=== PATIENT | male | born 1990 | race Caucasian/White ===

== ENCOUNTER 2016-10-23 20:47 | Emergency (ER) | payer OTHER ==
[2016-10-23 22:14] VITALS: BP 132/67
[2016-10-23] MEDS ORDERED: Tobramycin 0.3% OPHTH.SOL* 5 ML BOT (regular eye drops) BOTH EYES ONE (22:42)
--- NOTE | 2016-10-25 14:55 | UC ---
Castro Nunez Erika, scribed for Lizette Roca MD on 10/23/16 at 2236 . Eye Complaint HPI - HPI Summary HPI Summary: Patient is a 26-year-old male presenting to the ED with a CC of right eye redness with drainage starting yesterday. He denies known foreign body, and states he does not wear contact lenses. He denies trauma to the eye. Associated symptoms include fatigue and runny nose. He denies sinus pressure, cough, chest pain, and SOB. 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 Pt smokes daily. Pt cannot recall the name of his PCP. - History of Current Complaint Chief Complaint: UCEye Stated Complaint: EYE COMPLAINT Time Seen by Provider: 10/23/16 22:28 Hx Obtained From: Patient Onset/Duration: Gradual Onset, Lasting Days, Still Present Timing: Constant Severity Initially: Moderate Severity Currently: Moderate Pain Intensity: 5 Pain Scale Used: 0-10 Numeric Location of Injury: Conjunctiva Character: Dull Aggravating Factor(s): Nothing Alleviating Factor(s): Nothing Associated Signs And Symptoms: Positive: Drainage (Purulent) - Risk Factors Penetrating Injury Risk Factor: Negative Acute Glaucoma Risk Factors: Negative - Allergies/Home Medications Allergies/Adverse Reactions: Allergies Allergy/AdvReac Type Severity Reaction Status Date / Time Cefaclor [From [facility] [place]] Allergy Rash Verified 02/11/16 17:34 PMH/Surg Hx/FS Hx/Imm Hx Respiratory History Of: Reports: Asthma - as a child no adult issues Other History Of: Hepatitis C - Surgical History Surgical History: Yes Surgery Procedure, Year, and Place: Right hand - Family History Known Family History: Positive: Diabetes, Respiratory Disease - Social History Occupation: Employed Full-time Alcohol Use: Rare Substance Use Type: Heroin Substance Use Comment - Amount & Last Used: past hx, not currently using past 1- 2 yrs Smoking Status (MU): Heavy Every Day Tobacco Smoker Type: Cigarettes Amount Used/How Often: 1 PPD - 1.5 PPD Household Exposure Type: Cigarettes Cessation Counseling: Patient Advised to Stop - Immunization History Most Recent Influenza Vaccination: 2014 Most Recent Tetanus Shot: up to date Review of Systems Constitutional: Fatigue Eyes: Drainage - right, Eye Redness - right ENT: Nasal Discharge All Other Systems Reviewed And Are Negative: Yes Physical Exam Triage Information Reviewed: Yes Appearance: No Pain Distress, Well-Nourished, Ill-Appearing - mildly Vital Signs: Initial Vital Signs Temp 98.6 F 10/23/16 22:07 Pulse 88 10/23/16 22:07 Resp 16 10/23/16 22:07 BP 132/67 10/23/16 22:07 Pulse Ox 95 10/23/16 22:07 Vital Signs Reviewed: Yes ENT Exam: Other - right eye swollen, conjunctiva inflammed, clear drainage, purulent drainage on eyelashes ENT: Positive: Pharyngeal erythema. Negative: Tonsillar swelling, Tonsillar exudate Neck: Positive: Supple Respiratory: Positive: No respiratory distress, Wheezing - Bilaterally with inspiration and expiration, but not with every breath Cardiovascular: Positive: RRR, Pulses Normal, Brisk Capillary Refill Musculoskeletal: Positive: Strength Intact, ROM Intact Neurological: Positive: Alert, Muscle Tone Normal Psychological Exam: Normal Skin Exam: Normal Eye Complaint Course/Dx - Differential Dx/Diagnosis Differential Diagnosis/HQI/PQRI: Conjunctivitis, Corneal Abrasion, Periorbital Cellulitis, Orbital Cellulitis Provider Diagnoses: 1. Conjunctivitis. 2. URI. 3. Tobacco abuse disorder Discharge - Discharge Plan Condition: Stable Disposition: HOME Patient Education Materials: How to Stop Smoking (ED), Upper Respiratory Infection (ED), Conjunctivitis (ED) Forms: *Work Release Referrals: No Primary Care Phys,NOPCP [Primary Care Provider] - Ti Cox MD [Medical Doctor] - The documentation as recorded by the Castro cox Erika accurately reflects the service I personally performed and the decisions made by , Lizette Roca MD.
== END 2016-10-23 22:55 | disposition home or self-care (01) ==
LOC: UCEAST 20:47
DX: H10.31 Unspecified acute conjunctivitis, right eye (principal); J06.9 Acute upper respiratory infection, unspecified; Z88.1 Allergy status to other antibiotic agents; F17.210 Nicotine dependence, cigarettes, uncomplicated
CPT/HCPCS: 99213; A9270-GY; G0463

== ENCOUNTER 2016-12-04 11:59 | Emergency (ER) | payer OTHER ==
[2016-12-04 12:25] VITALS: BP 125/69
--- NOTE | 2016-12-04 13:16 | UC ---
Respiratory Complaint HPI - History of Current Complaint Chief Complaint: UCGeneralIllness Stated Complaint: CONGEST,FEVER Time Seen by Provider: 12/04/16 13:03 Hx Obtained From: Patient Onset/Duration: Gradual Onset - started last week with flu symps, they got better and now coughing up green phlegm. has tried no meds but chest gabriel worse today Severity Initially: Mild - cough Severity Currently: Moderate Character: Sputum Description: - thick dk yellow/green Aggravating Factors: Exertion, Recumbent Position Alleviating Factors: Nothing Associated Signs And Symptoms: Positive: Nasal Congestion. Negative: Fever, Chills, Dizziness - Allergies/Home Medications Allergies/Adverse Reactions: Allergies Allergy/AdvReac Type Severity Reaction Status Date / Time Cefaclor [From [facility]] Allergy Rash Verified 12/04/16 12:25 Home Medications: Home Medications Ibuprofen TAB* [Advil TAB*] 400 mg PO Q6H PRN 12/04/16 [History Confirmed ] PMH/Surg Hx/FS Hx/Imm Hx Previously Healthy: Yes Endocrine History Of: Denies: Diabetes, Thyroid Disease Cardiovascular History Of: Denies: Cardiac Disorders, Hypertension Respiratory History Of: Reports: Asthma - as a child no adult issues Denies: COPD GI/ History Of: Denies: Ulcer Psychological History Of: Denies: Anxiety, Depression Other History Of: Hepatitis C - Surgical History Surgical History: Yes Surgery Procedure, Year, and Place: Right hand - Family History Known Family History: Positive: Diabetes, Respiratory Disease - Social History Occupation: Employed Full-time - restaurant Lives: With Family Alcohol Use: Rare Substance Use Type: None Substance Use Comment - Amount & Last Used: past hx heroin use, not currently using past 1-2 yrs Smoking Status (MU): Heavy Every Day Tobacco Smoker Type: Cigarettes Amount Used/How Often: 1 PPD - 1.5 PPD Household Exposure Type: Cigarettes Cessation Counseling: Patient Advised to Stop - Immunization History Most Recent Influenza Vaccination: 2014 Most Recent Tetanus Shot: up to date Review of Systems Constitutional: Fatigue - since 2 days ago Skin: Negative Respiratory: Cough Cardiovascular: Negative Neurovascular: Negative Neurological: Negative Psychological: Negative All Other Systems Reviewed And Are Negative: Yes Physical Exam Triage Information Reviewed: Yes Appearance: Well-Appearing, No Pain Distress, Well-Nourished Vital Signs: Initial Vital Signs Temp 98.8 F 12/04/16 12:22 Pulse 61 12/04/16 12:22 Resp 16 12/04/16 12:22 BP 125/69 12/04/16 12:22 Pulse Ox 99 12/04/16 12:22 Vital Signs Reviewed: Yes ENT: Positive: Pharynx normal, Nasal congestion, TMs normal Neck: Positive: No Lymphadenopathy Respiratory: Positive: Lungs clear, Other: - chest gabriel and productive cough ion room. Negative: Wheezing Cardiovascular Exam: Normal Cardiovascular: Positive: RRR Neurological Exam: Normal Psychological Exam: Normal Skin Exam: Normal UC Diagnostic Evaluation - Laboratory O2 Sat by Pulse Oximetry: 99 Respiratory Course/Dx - Differential Dx/Diagnosis Differential Diagnosis/HQI/PQRI: Bronchitis, Influenza, Lower Resp Infection, Sinusitis, Other - URI Provider Diagnoses: Bronchitis Discharge - Discharge Plan Condition: Stable Disposition: HOME Prescriptions: Azithromycin TAB* [Zithromax TAB (Z-GEORGE) 250 mg #6 tabs] 250 mg PO DAILY #6 tab
== END 2016-12-04 13:22 | disposition home or self-care (01) ==
LOC: UCEAST 11:59
DX: J40 Bronchitis, not specified as acute or chronic (principal); Z88.8 Allergy status to other drugs, medicaments and biological substances; F17.290 Nicotine dependence, other tobacco product, uncomplicated
CPT/HCPCS: 99212; G0463

== ENCOUNTER 2017-02-10 14:11 | Emergency (ER) | payer MEDICAID, OTHER ==
[2017-02-10 14:28] VITALS: BP 123/60
--- NOTE | 2017-02-10 15:19 | UC ---
Respiratory Complaint HPI - HPI Summary HPI Summary: cough chest congestion worsening for 4 days also would like his valtrex resolved - History of Current Complaint Chief Complaint: UCRespiratory Stated Complaint: CLIVE,COUGH Time Seen by Provider: 02/10/17 14:21 Hx Obtained From: Patient Onset/Duration: Gradual Onset, Lasting Days, Still Present, Worse Since - getting worse daily Timing: Constant Severity Initially: Mild Severity Currently: Moderate Pain Intensity: 4 Pain Scale Used: 0-10 Numeric Character: Cough: Productive Aggravating Factors: Nothing Alleviating Factors: Nothing Associated Signs And Symptoms: Positive: Pleuritic Chest Pain, URI, Nasal Congestion - Allergies/Home Medications Allergies/Adverse Reactions: Allergies Allergy/AdvReac Type Severity Reaction Status Date / Time [facility] Allergy Rash Verified 12/04/16 12:25 Home Medications: Home Medications Acetaminophen [Tylenol] 650 mg PO Q4H PRN 02/10/17 [History Confirmed 02/10/17] GuaiFENesin DM* [Robitussin DM*] 5 ml PO Q6H PRN 02/10/17 [History Confirmed 01/24] PMH/Surg Hx/FS Hx/Imm Hx Previously Healthy: No Endocrine History Of: Denies: Diabetes, Thyroid Disease Cardiovascular History Of: Denies: Cardiac Disorders, Hypertension Respiratory History Of: Reports: Asthma - as a child no adult issues Denies: COPD GI/ History Of: Denies: Ulcer Psychological History Of: Denies: Anxiety, Depression Other History Of: Hepatitis C - Surgical History Surgical History: Yes Surgery Procedure, Year, and Place: Right hand - Family History Known Family History: Positive: Diabetes, Respiratory Disease - Social History Occupation: Employed Full-time Lives: With Family Alcohol Use: Rare Substance Use Type: None Substance Use Comment - Amount & Last Used: past hx heroin use, not currently using past 1-2 yrs Smoking Status (MU): Heavy Every Day Tobacco Smoker Type: Cigarettes Amount Used/How Often: 1 PPD - 1.5 PPD Household Exposure Type: Cigarettes Cessation Counseling: Counseled 3+Min - 10 Min - Immunization History Most Recent Influenza Vaccination: fall 2015 Most Recent Tetanus Shot: up to date Review of Systems Constitutional: Negative Skin: Negative Eyes: Negative ENT: Negative Respiratory: Cough Cardiovascular: Negative Gastrointestinal: Negative Genitourinary: Negative Motor: Negative Neurovascular: Negative Musculoskeletal: Negative Neurological: Negative Psychological: Negative All Other Systems Reviewed And Are Negative: Yes Physical Exam Triage Information Reviewed: Yes Appearance: Well-Appearing, No Pain Distress, Well-Nourished Vital Signs: Initial Vital Signs Temp 98.5 F 02/10/17 14:22 Pulse 93 02/10/17 14:22 Resp 16 02/10/17 14:22 BP 123/60 02/10/17 14:22 Pulse Ox 96 02/10/17 14:22 Vital Signs Reviewed: Yes Eye Exam: Normal Eyes: Positive: Conjunctiva Clear ENT Exam: Normal ENT: Positive: Normal ENT inspection, Hearing grossly normal, Pharynx normal, TMs normal. Negative: Nasal congestion, Nasal drainage, Tonsillar swelling, Tonsillar exudate, Trismus, Muffled/hoarse voice Dental Exam: Normal Neck exam: Normal Neck: Positive: Supple, Nontender, No Lymphadenopathy Respiratory Exam: Normal Respiratory: Positive: Chest non-tender, Lungs clear, Normal breath sounds, No respiratory distress, No accessory muscle use Cardiovascular Exam: Normal Cardiovascular: Positive: RRR, No Murmur, Pulses Normal, Brisk Capillary Refill Musculoskeletal Exam: Normal Musculoskeletal: Positive: Strength Intact, ROM Intact, No Edema Neurological Exam: Normal Neurological: Positive: Alert, Muscle Tone Normal Psychological Exam: Normal Skin Exam: Normal UC Diagnostic Evaluation - Laboratory O2 Sat by Pulse Oximetry: 96 Respiratory Course/Dx - Course Course Of Treatment: nicotine cesation information, albuterol, zithromax, refill valtrex, follow with pcp - Differential Dx/Diagnosis Differential Diagnosis/HQI/PQRI: Asthma, Bronchitis, Laryngitis, Lower Resp Infection, Sinusitis Provider Diagnoses: Exacerbation of asthma, nicotine dependant, bronchitis, HSV (chronic) Discharge - Discharge Plan Condition: Stable Disposition: HOME Prescriptions: Albuterol HFA INHALER* [Ventolin HFA Inhaler*] 2 puff INH Q4H PRN #1 mdi PRN Reason: cough chest congestion Azithromycin TAB* [Zithromax TAB (Z-GEORGE) 250 mg #6 tabs] 2 tab PO SEE INSTRUCTIONS #1 george Spacer/Aerosol-Holding Chamber [Aerochamber Plus] 1 mis XX SEE INSTRUCTIONS #1 mis ValACYclovir (*) [Valtrex 500 mg (*)] 500 mg PO BID #60 tab Patient Education Materials: Nicotine (By breathing), Acute Bronchitis (ED), How to Use a Metered-Dose Inhaler and a Spacer (ED) Forms: *Work Release Referrals: [facility] [Outside] - 1 Week
== END 2017-02-10 15:00 | disposition home or self-care (01) ==
LOC: UCEAST 14:11
DX: J45.901 Unspecified asthma with (acute) exacerbation (principal); F17.210 Nicotine dependence, cigarettes, uncomplicated; B00.9 Herpesviral infection, unspecified; Z88.8 Allergy status to other drugs, medicaments and biological substances
CPT/HCPCS: 99212; G0463

== ENCOUNTER 2017-03-06 13:32 | Emergency (ER) | payer MEDICAID ==
[2017-03-06] MEDS ORDERED: Tetan/Diph/Pertus SYR(Tdap)* 0.5 ML SYR(BOOSTRIX) use SYR IM ONE (14:41)
--- NOTE | 2017-03-06 15:30 | UC ---
Laceration HPI - HPI Summary HPI Summary: 26 yo male presents after he cut his finger on a can, initially he reports there was a lot of blood which now has stopped. Does not remember when he has had his last tetanus - History Of Current Complaint Chief Complaint: UCLaceration Stated Complaint: HAND LAC Time Seen by Provider: 03/06/17 15:09 Hx Obtained From: Patient Laceration Location: Finger Mechanism Of Injury: Sharp Trauma Onset/Duration: Sudden Onset Severity: Moderate Pain Intensity: 1 Pain Scale Used: 0-10 Numeric Related History: Dominant Hand Right - Allergies/Home Medications Allergies/Adverse Reactions: Allergies Allergy/AdvReac Type Severity Reaction Status Date / Time Cefaclor [From [facility]] Allergy Rash Verified 03/06/17 14:12 PMH/Surg Hx/FS Hx/Imm Hx Previously Healthy: Yes Endocrine History Of: Denies: Diabetes, Thyroid Disease Cardiovascular History Of: Denies: Cardiac Disorders, Hypertension Respiratory History Of: Reports: Asthma - as a child no adult issues Denies: COPD GI/ History Of: Denies: Ulcer Psychological History Of: Denies: Anxiety, Depression Other History Of: Hepatitis C - Surgical History Surgical History: Yes Surgery Procedure, Year, and Place: Right hand - Family History Known Family History: Positive: Diabetes, Respiratory Disease - Social History Occupation: Employed Full-time Lives: With Family Alcohol Use: Rare Substance Use Type: None Substance Use Comment - Amount & Last Used: past hx heroin use Smoking Status (MU): Heavy Every Day Tobacco Smoker Type: Cigarettes Amount Used/How Often: 1 PPD - 1.5 PPD Have You Smoked in the Last Year: Yes Household Exposure Type: Cigarettes Cessation Counseling: Patient Advised to Stop - Immunization History Most Recent Influenza Vaccination: fall 2015 Most Recent Tetanus Shot: up to date Hx Tetanus, Diphtheria Vaccination: No Vaccination Up to Date: No Review of Systems Constitutional: Other Skin: Other - laceration to right 2nd finger Eyes: Negative ENT: Negative Respiratory: Negative Cardiovascular: Negative Gastrointestinal: Negative Genitourinary: Negative Motor: Negative Neurovascular: Negative Musculoskeletal: Negative Neurological: Negative Psychological: Negative All Other Systems Reviewed And Are Negative: Yes Physical Exam Triage Information Reviewed: Yes Appearance: Well-Appearing, No Pain Distress, Well-Nourished, Ill-Appearing Vital Signs: Initial Vital Signs Temp 98.2 F 03/06/17 14:09 Pulse 83 03/06/17 14:09 Resp 16 03/06/17 14:09 BP 133/75 03/06/17 14:09 Pulse Ox 98 03/06/17 14:09 Vital Signs Reviewed: Yes Respiratory: Positive: Chest non-tender, Lungs clear, Normal breath sounds, No respiratory distress, No accessory muscle use Cardiovascular: Positive: RRR, No Murmur, Pulses Normal, Brisk Capillary Refill Psychological: Positive: Normal Response To Family Skin: Positive: Other - right 2nd pointer finger - distal phalanx 0.5 cm long by 1 mm deep laceration, straight with clean edges. no bleeding noted. no erythema, drainage, mild tenderness Laceration Repair - Laceration Repair 1 Description: Linear Laceration Size After Repair: Length (cm) - 0.5, Width (mm) - 0.5 mm, Depth (mm ) - 1mm Cleansing Completed Via Routine Prep: Yes Irrigation With Pressure Irrigation Device: Yes Closure Material: Skin Adhesive, SteriStrips Laceration Course/Dx - Differential Dx - Laceration/Wound Differental Diagnoses: Abrasion, Laceration Provider Diagnoses: 1. right 2nd finger laceration Discharge - Discharge Plan Condition: Stable Disposition: HOME Patient Education Materials: Laceration (ED) Referrals: No Primary Care Phys,NOPCP [Primary Care Provider] - Additional Instructions: keep dressing on for at least 2-3 days. Do not get wet and do not bend finger. Monitor for signs and symptoms of infection. If you have any concerns return for re-evaluation.
[2017-03-06 15:40] VITALS: BP 128/86
== END 2017-03-06 16:20 | disposition home or self-care (01) ==
LOC: UCEAST 13:32
DX: S61.210A Laceration without foreign body of right index finger without damage to nail, initial encounter (principal); W26.8XXA Contact with other sharp object(s), not elsewhere classified, initial encounter; Y93.9 Activity, unspecified; Z23 Encounter for immunization; Y92.9 Unspecified place or not applicable; J45.909 Unspecified asthma, uncomplicated; Z88.1 Allergy status to other antibiotic agents; F17.210 Nicotine dependence, cigarettes, uncomplicated
CPT/HCPCS: 90715; 99211; G0463

== ENCOUNTER 2017-05-04 16:40 | Emergency (ER) | payer MEDICAID ==
[2017-05-04 16:46] VITALS: BP 136/64
--- NOTE | 2017-05-04 17:57 | UC ---
Throat Pain/Nasal Leighton HPI - HPI Summary HPI Summary: 26 y/o male presents to the urgent care c/o of sore throat and cough and body aches for the past 2 days. Pt states he has HX of recurrent bronchitis in the past and it starts with similar symptoms. Pt states he had mild fever yesterday and he took Nyquil which helped alleviate symptoms. He states his cough is nonproductive. Pt denies SOB, chest pain, N/V/D. Pt has not other complains. - History of Current Complaint Chief Complaint: UCRespiratory Stated Complaint: SORE THROAT,COUGH,CONGEST Time Seen by Provider: 05/04/17 17:40 Hx Obtained From: Patient Onset/Duration: Gradual Onset, Lasting Days, Still Present Severity: Moderate Pain Intensity: 2 Pain Scale Used: 0-10 Numeric Cough: Nonproductive Associated Signs & Symptoms: Positive: Dysphagia, Fever - mild yesterday - Epiglottits Risk Factors Epiglottis Risk Factors: Negative - Allergies/Home Medications Allergies/Adverse Reactions: Allergies Allergy/AdvReac Type Severity Reaction Status Date / Time Cefaclor [From [facility]] Allergy Rash Verified 05/04/17 16:46 Home Medications: Home Medications Dextromethorphan-Phenylephrine [Vicks Dayquil Cold & Flu 10-5-325 mg/15Ml] 1 liq PO PRN 05/04/17 [History] PMH/Surg Hx/FS Hx/Imm Hx Previously Healthy: Yes Respiratory History: Asthma Other History Of: Hepatitis C - Surgical History Surgical History: Yes Surgery Procedure, Year, and Place: Right hand - Family History Known Family History: Positive: Hypertension, Diabetes, Respiratory Disease - Social History Occupation: Employed Full-time Lives: With Family Alcohol Use: Rare Substance Use Type: None Substance Use Comment - Amount & Last Used: PAST HX COCAINE USE Smoking Status (MU): Current Every Day Smoker Type: Cigarettes Amount Used/How Often: 1 1/2 PPD Have You Smoked in the Last Year: Yes Household Exposure Type: Cigarettes - Immunization History Most Recent Influenza Vaccination: fall 2015 Most Recent Tetanus Shot: up to date Hx Tetanus, Diphtheria Vaccination: No Vaccination Up to Date: No Review of Systems Constitutional: Fever - at home Skin: Negative Eyes: Negative ENT: Sore Throat Respiratory: Cough - productive w/ green phlegm Cardiovascular: Negative Gastrointestinal: Negative Genitourinary: Negative Motor: Negative Neurovascular: Negative Musculoskeletal: Negative Neurological: Negative Psychological: Negative All Other Systems Reviewed And Are Negative: Yes Physical Exam Triage Information Reviewed: Yes Appearance: Well-Appearing, No Pain Distress, Well-Nourished, Obese Vital Signs: Initial Vital Signs Temp 98.5 F 05/04/17 16:43 Pulse 86 05/04/17 16:43 Resp 20 05/04/17 16:43 BP 136/64 05/04/17 16:43 Pulse Ox 97 05/04/17 16:43 Vital Signs Reviewed: Yes Eye Exam: Normal Eyes: Positive: Conjunctiva Clear - PERRLA, EOMI, fundi grossly normal ENT Exam: Normal ENT: Positive: Normal ENT inspection, Hearing grossly normal, Pharynx normal, Nasal congestion, Nasal drainage - clear discahrge, TMs normal Dental Exam: Normal Neck exam: Normal Neck: Positive: Supple, Nontender, No Lymphadenopathy Respiratory Exam: Normal Respiratory: Positive: Chest non-tender, Lungs clear, Normal breath sounds Cardiovascular Exam: Normal Cardiovascular: Positive: RRR, No Murmur, Pulses Normal Abdominal Exam: Normal Abdomen Description: Positive: Nontender, No Organomegaly, Soft. Negative: CVA Tenderness (R), CVA Tenderness (L) Bowel Sounds: Positive: Present Musculoskeletal Exam: Normal Musculoskeletal: Positive: Strength Intact, ROM Intact, No Edema Neurological Exam: Normal Psychological Exam: Normal Skin Exam: Normal Throat Pain/Nasal Course/Dx - Course Course Of Treatment: 26 y/o male presents to the urgent care c/o of sore throat and cough and body aches for the past 2 days. Hx obtained. PE WNL. Pt Rx Benzoate tab, albuterol inhaler to alleviate cough, and ibuprofen PO for his sore throat. Pt advised to increase fluid intake nad rest and if symptoms do not improve to return to the urgent care or PCP for further evaluation and treatment. Pt understood and agreed. - Differential Dx/Diagnosis Differential Diagnosis/HQI/PQRI: Laryngitis, Mononucleosis, Otitis Media, Pharyngitis, Tonsillitis, URI, Other Provider Diagnoses: 1- Upper respiratory infection Discharge - Discharge Plan Condition: Stable Disposition: HOME Prescriptions: Albuterol HFA INHALER* [Ventolin HFA Inhaler*] 1 - 2 puff INH Q6H PRN #1 mdi PRN Reason: Cough Benzonatate CAP* [Tessalon 100 MG CAP*] 100 mg PO TID PRN #15 cap PRN Reason: Cough Ibuprofen TAB* [Motrin TAB* 800 MG] 800 mg PO Q6H #20 tab Patient Education Materials: Upper Respiratory Infection (ED) Referrals: No Primary Care Phys,NOPCP [Primary Care Provider] - [facility]] - If Needed Additional Instructions: Please take medications as instructed. Please take ibuprofen after meals to alleviate pain and swelling. If symptoms do not improve or worsen please return to the urgent care or f/u with your PCP for further evaluation and treatment.
== END 2017-05-04 18:16 | disposition home or self-care (01) ==
LOC: UCEAST 16:40
DX: J06.9 Acute upper respiratory infection, unspecified (principal); J45.909 Unspecified asthma, uncomplicated; E66.9 Obesity, unspecified; Z88.1 Allergy status to other antibiotic agents; F17.210 Nicotine dependence, cigarettes, uncomplicated
CPT/HCPCS: 87651; 99212; G0463

== ENCOUNTER 2017-07-29 16:45 | Emergency (ER) | payer OTHER ==
[2017-07-29 18:38] LABS: Hematocrit 42 % (42-52); Hemoglobin 14.5 g/dl (14.0-18.0); Mean Corpuscular HGB Conc 35 g/dl (31-36); Mean Corpuscular Hemoglobin 30 pg (27-31); Mean Corpuscular Volume 88 fL (80-94); Mean Platelet Volume 7 um3 (7.4-10.4); Red Blood Count 4.78 10^6/ul (4.0-5.4); Red Cell Distribution Width 14 % (10.5-15); White Blood Count 10.7 10^3/ul (3.5-10.8)
[2017-07-29 18:52] LABS: ALT 29 U/L (7-52); AST 33 U/L (13-39); Albumin 4.1 g/dL (3.2-5.2); Alkaline Phosphatase 49 U/L (34-104); Anion Gap 5 mmol/L (2-11); BUN/Creatinine Ratio 15.2 (8-20); Blood Urea Nitrogen 12 mg/dL (6-24); CO2 Carbon Dioxide 27 mmol/L (22-32); Calcium 9.2 mg/dL (8.6-10.3); Chloride 104 mmol/L (101-111); EGFR African American 150.2 (>60); EGFR Non-African American 116.8 (>60); Globulin 3.1 g/dL (2-4); Glucose 105 mg/dL (70-100); Potassium 3.6 mmol/L (3.5-5.0); Sodium 136 mmol/L (133-145); Total Protein 7.2 g/dL (6.4-8.9)
[2017-07-29 19:18] LABS: Acetaminophen < 15 mcg/mL; Alcohol < 10 mg/dL (<10); Salicylate < 2.50 mg/dL (<30)
[2017-07-29] MEDS ORDERED: Naloxone Nasal Spray* 4 MG/0.1 ML NASAL.SPR NASAL ONE (19:21)
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
[2017-07-29 19:31] VITALS: BP 155/82
== END 2017-07-29 19:29 | disposition home or self-care (01) ==
LOC: ED 16:45
DX: T40.1X1A Poisoning by heroin, accidental (unintentional), initial encounter (principal); Y92.810 Car as the place of occurrence of the external cause; J45.909 Unspecified asthma, uncomplicated; F17.210 Nicotine dependence, cigarettes, uncomplicated
CPT/HCPCS: 36415; 80053; 80320; 80329; 85025; 93005; 99282; G0480

== ENCOUNTER 2017-09-18 19:52 | Emergency (ER) | payer OTHER ==
[2017-09-18] MEDS ORDERED: Naloxone* 0.4 MG/ML 1 ML VIAL IV PUSH ONE (20:16)
[2017-09-18 20:32] LABS: Hematocrit 50 % (42-52); Hemoglobin 17.1 g/dl (14.0-18.0); Mean Corpuscular HGB Conc 34 g/dl (31-36); Mean Corpuscular Hemoglobin 31 pg (27-31); Mean Corpuscular Volume 90 fL (80-94); Mean Platelet Volume 7 um3 (7.4-10.4); Red Blood Count 5.57 10^6/ul (4.0-5.4); Red Cell Distribution Width 14 % (10.5-15); White Blood Count 10.7 10^3/ul (3.5-10.8)
[2017-09-18] MEDS ORDERED: Albuterol/Ipratropium NEB.SOL* Albuterol 2.5 MG/Ipratropium 0.5 MG 3 ML INH ONE (20:44)
[2017-09-18] MEDS ORDERED: methylPREDNISolone 125 MG* 2 ML VIAL IV ONE (20:47)
[2017-09-18 20:48] LABS: ALT 22 U/L (7-52); AST 22 U/L (13-39); Albumin 4.8 g/dL (3.2-5.2); Alkaline Phosphatase 54 U/L (34-104); Anion Gap 9 mmol/L (2-11); BUN/Creatinine Ratio 15.5 (8-20); Blood Urea Nitrogen 17 mg/dL (6-24); CO2 Carbon Dioxide 25 mmol/L (22-32); Calcium 9.7 mg/dL (8.6-10.3); Chloride 102 mmol/L (101-111); EGFR African American 101.8 (>60); EGFR Non-African American 79.1 (>60); Globulin 3.6 g/dL (2-4); Glucose 131 mg/dL (70-100); Potassium 3.6 mmol/L (3.5-5.0); Sodium 136 mmol/L (133-145); Total Protein 8.4 g/dL (6.4-8.9)
[2017-09-18] MEDS ORDERED: Albuterol 2.5 MG/3 ML NEB.SOL* (0.083%) INH SCH (21:00)
[2017-09-18 21:09] LABS: Alcohol < 10 mg/dL (<10)
--- NOTE | 2017-09-18 21:15 | RAD ---
Indication: Overdose. Shortness of breath. Comparison: No relevant prior exams available on the [facility] for comparison. Technique: Upright AP 4 hours Report: Mild bilateral linear subsegmental atelectasis. Negative for pleural effusion or pneumothorax. The heart, pulmonary vasculature, and mediastinal contours are unremarkable. No fracture evident. IMPRESSION: Mild bilateral subsegmental atelectasis without additional finding.
[2017-09-18 23:16] VITALS: BP 126/59
[2017-09-18] MEDS ORDERED: Levofloxacin TAB* 750 MG PO ONE (23:16)
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
[2017-09-18 23:27] LABS: Urine Bacteria Absent (Absent); Urine Bilirubin Negative (Negative); Urine Glucose Negative (Negative); Urine Nitrite Negative (Negative)
[2017-09-18 23:38] LABS: Benzodiazepine Urine Screen None Detected (None Detect)
== END 2017-09-18 23:27 | disposition home or self-care (01) ==
LOC: ED 19:52
DX: T40.1X1A Poisoning by heroin, accidental (unintentional), initial encounter (principal); Y92.9 Unspecified place or not applicable; J40 Bronchitis, not specified as acute or chronic; J45.909 Unspecified asthma, uncomplicated
CPT/HCPCS: 36415; 71010; 80053; 80307; 80320; 81003; 81015; 85025; 96374; 96375; 99283; A9270-GY; G0480; J2310; J2930

== ENCOUNTER 2018-03-04 10:07 | Emergency (ER) | payer OTHER ==
[2018-03-04 10:25] VITALS: BP 103/52
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
== END 2018-03-04 11:01 | disposition home or self-care (01) ==
LOC: UCEAST 10:07
DX: S01.01XD Laceration without foreign body of scalp, subsequent encounter (principal); V49.9XXD Car occupant (driver) (passenger) injured in unspecified traffic accident, subsequent encounter; Z88.1 Allergy status to other antibiotic agents; F17.210 Nicotine dependence, cigarettes, uncomplicated
CPT/HCPCS: 99211; G0463

== ENCOUNTER 2018-04-30 15:23 | Emergency (ER) | payer SELFPAY ==
[2018-04-30 15:46] VITALS: BP 104/52
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
== END 2018-04-30 16:21 | disposition home or self-care (01) ==
LOC: UCEAST 15:23
DX: F11.21 Opioid dependence, in remission (principal); F32.9 Major depressive disorder, single episode, unspecified; Z76.0 Encounter for issue of repeat prescription; Z88.1 Allergy status to other antibiotic agents
CPT/HCPCS: 99212; G0463

== ENCOUNTER 2018-05-12 18:15 | Emergency (ER) | payer SELFPAY ==
[2018-05-12] MEDS ORDERED: NS 0.9% 1000 ML* 1,000 ML IV ONE (18:20)
[2018-05-12] MEDS ORDERED: Ketorolac INJ* 30 MG/ML 1 ML VIAL IV PUSH ONE (18:20)
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
[2018-05-12 19:01] LABS: ABS Basophils 0 10^3/ul (0-0.2); ABS Eosinophils 0.1 10^3/ul (0-0.6); ABS Lymphocytes 1.2 10^3/ul (1.0-4.8); ABS Monocytes 0.8 10^3/ul (0-0.8); ABS Neutrophils 7.4 10^3/ul (1.5-7.7); ABS Nucleated RBC 0 10^3/ul; Eosinophil % 0.9 % (0-6); Hematocrit 46 % (42-52); Hemoglobin 15.9 g/dl (14.0-18.0); Lymphocyte % 12.6 % (25-47); Mean Corpuscular HGB Conc 35 g/dl (31-36); Mean Corpuscular Hemoglobin 32 pg (27-31); Mean Corpuscular Volume 92 fL (80-94); Mean Platelet Volume 7.6 um3 (7.4-10.4); Nucleated Red Blood Cells % 0; Platelet Count 180 10^3/ul (150-450); Red Blood Count 4.93 10^6/ul (4.00-5.40); Red Cell Distribution Width 14 % (10.5-15); White Blood Count 9.5 10^3/ul (3.5-10.8)
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
[2018-05-12 19:12] LABS: EGFR Non-African American 79.1 (>60)
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
[2018-05-12] MEDS ORDERED: Amoxicillin/Clavulanate TAB* 875 MG PO ONE (19:58)
[2018-05-12 20:34] VITALS: BP 114/55
== END 2018-05-12 20:24 | disposition home or self-care (01) ==
LOC: ED 18:15
DX: S02.82XA Fracture of other specified skull and facial bones, left side, initial encounter for closed fracture (principal); S00.83XA Contusion of other part of head, initial encounter; S30.1XXA Contusion of abdominal wall, initial encounter; Y04.2XXA Assault by strike against or bumped into by another person, initial encounter; Y93.9 Activity, unspecified; Y92.9 Unspecified place or not applicable; Z88.1 Allergy status to other antibiotic agents; Z82.49 Family history of ischemic heart disease and other diseases of the circulatory system; Z83.3 Family history of diabetes mellitus; Z83.6 Family history of other diseases of the respiratory system; F17.210 Nicotine dependence, cigarettes, uncomplicated
CPT/HCPCS: 36415; 70450; 70486; 71046; 72125; 80053; 80320; 82550; 85025; 96374; 99283; A9270-GY; G0480; J1885